=== PATIENT | male | born 1995 | race Asian ===

== ENCOUNTER 2016-07-25 13:33 | Emergency (ER) | payer SELFPAY ==
[2016-07-25 13:40] VITALS: BP 129/73
--- NOTE | 2016-07-25 15:07 | ED ---
Seble Rajput Janilya, scribed for Lito Sosa MD on 07/25/16 at 1457 . Throat Pain/Nasal Congestion - HPI Summary HPI Summary: A 21 y/[facility] w/ a gradual onset of constant L eye pain starting yesterday. Pt states he was taking his contacts off, when he perhaps might have scratched his L eye. Later yesterday at approx. noon, the pain increased severely. This morning, the pain was at its worst. It is somewhat better now. He reports difficulty seeing and blurry vision. - History of Current Complaint Chief Complaint: EDEyeProblem Time Seen by Provider: 07/25/16 14:45 Hx Obtained From: Patient Onset/Duration: Gradual Onset, Lasting Days, Still Present Severity: Moderate PMH/Surg Hx/FS Hx/Imm Hx Previously Healthy: Yes EENT History: Denies: Hx Deafness Infectious Disease History: No Infectious Disease History: Denies: Traveled Outside the [place] in Last 30 Days - Family History Known Family History: Positive: Diabetes - mother Negative: Cardiac Disease - Social History Occupation: Student Hx Substance Use: No Review of Systems Positive: Blurred Vision, Other - L eye pain All Other Systems Reviewed And Are Negative: Yes Physical Exam Triage Information Reviewed: Yes Vital Signs On Initial Exam: Initial Vitals Temp Pulse Resp BP Pulse Ox 97.8 F 71 17 129/73 100 07/25/16 13:36 07/25/16 13:36 07/25/16 13:36 07/25/16 13:36 07/25/16 13:36 Vital Signs Reviewed: Yes Appearance: Positive: Well-Appearing, No Pain Distress Skin: Positive: Warm, Skin Color Reflects Adequate Perfusion, Dry Head/Face: Positive: Normal Head/Face Inspection Eyes: Positive: EOMI, JC, Other: - No hyphema. Circumferential scleral injection. 2-3 mm area of florescein uptake directly over the pupil. ENT: Positive: Normal ENT inspection Neck: Positive: Supple, Nontender Respiratory/Lung Sounds: Positive: Clear to Auscultation, Breath Sounds Present Cardiovascular: Positive: RRR Abdomen Description: Positive: Nontender, Soft Bowel Sounds: Positive: Present Musculoskeletal: Positive: Normal, Strength/ROM Intact Neurological: Positive: Normal, Sensory/Motor Intact, Alert, Oriented to Person Place, Time Psychiatric: Positive: Affect/Mood Appropriate Diagnostics - Vital Signs Vital Signs Temp Pulse Resp BP Pulse Ox 07/25/16 13:36 97.8 F 71 17 129/73 100 - Laboratory Lab Statement: Any lab studies that have been ordered have been reviewed, and results considered in the medical decision making process. EENT Course/Dx - Course Course Of Treatment: NO CRITICAL CARE TIME Assessment/Plan: NO FB SEEN. RX TOBREX. F/U OPHTHALMOLOGY IF NOT IMPROVED. DISCHARGE HOME STABLE. - Diagnoses Provider Diagnoses: Corneal abrasion Discharge - Discharge Plan Condition: Stable Disposition: HOME Patient Education Materials: Corneal Abrasion (ED) Referrals: [facility] [Primary Care Provider] - Additional Instructions: FOLLOW UP WITH YOUR PNEUMATIC JACKETER IF NOT COMPLETELY IMPROVED. RETURN TO THE EMERGENCY DEPARTMENT FOR ANY WORSENING OF YOUR CONDITION OR QUESTIONS OR CONCERNS. The documentation as recorded by the Seble dubois Janilya accurately reflects the service I personally performed and the decisions made by me, Lito Sosa MD.
[2016-07-25] MEDS ORDERED: Tobramycin 0.3% OPHTH.SOL* 5 ML BOT (regular eye drops) LEFT EYE SCH (16:00)
== END 2016-07-25 15:28 | disposition home or self-care (01) ==
LOC: ED 13:33
DX: S05.02XA Injury of conjunctiva and corneal abrasion without foreign body, left eye, initial encounter (principal); X58.XXXA Exposure to other specified factors, initial encounter; Y92.9 Unspecified place or not applicable
CPT/HCPCS: 99282; A9270-GY